=== PATIENT | female | born 1975 | race Caucasian/White ===

== ENCOUNTER 2022-10-24 14:04 | Emergency (ER) | payer BC, SELFPAY ==
--- NOTE | 2022-10-24 14:30 | ED.SKABFB ---
HPI - Skin/Abscess/Foreign Bdy General Chief complaint: Skin/Abscess/Foreign Body Stated complaint: rt breast pain and irritation Time Seen by Provider: 10/24/22 14:31 Source: patient Mode of arrival: ambulatory Limitations: no limitations History of Present Illness HPI narrative: 47-year-old female presents with complaint of pain, swelling, redness to right breast for the past 3 days. Reports she called both her primary care physician and [facility] to be seen in unable to get an appointment for the next several weeks. Patient reports that today the redness to her right breast is improving but continues to have pain and swelling. Reports history of similar symptoms to her left breast several years ago and was told infected milk duct. States at that time she was not . She is currently not . She denies fever, chills, body aches. No nausea vomiting diarrhea. All systems reviewed and negative except as noted above. Related Data Home Medications Medication Instructions Recorded Confirmed amlodipine 10 mg tablet 10 mg PO DAILY 10/24/22 10/24/22 hydrochlorothiazide 25 mg tablet 25 mg PO DAILY 10/24/22 10/24/22 olmesartan 5 mg tablet 5 mg PO DAILY 10/24/22 10/24/22 Allergies Allergy/AdvReac Type Severity Reaction Status Date / Time acetaminophen [From Vicodin] Allergy Unknown Verified 10/24/22 14:34 codeine Allergy Unknown Verified 10/24/22 14:34 diphenhydramine Allergy Unknown Verified 10/24/22 14:34 [From Benadryl] hydrocodone [From Vicodin] Allergy Unknown Verified 10/24/22 14:34 loratadine [From Claritin] Allergy Unknown Verified 10/24/22 14:34 morphine Allergy Unknown Verified 10/24/22 14:34 pseudoephedrine Allergy Unknown Verified 10/24/22 14:34 [From Sudafed] Sulfa (Sulfonamide Allergy Unknown Verified 10/24/22 14:34 Antibiotics) sulfamethoxazole Allergy Unknown Verified 10/24/22 14:34 [From Bactrim] trimethoprim [From Bactrim] Allergy Unknown Verified 10/24/22 14:34 vancomycin Allergy Unknown Verified 10/24/22 14:34 Review of Systems Review of Systems: CONSTITUTIONAL: Denies fever, chills, or sweats. EYES: Denies visual changes, redness, or discharge. ENT: Denies rhinorrhea, congestion, sore throat, or otalgia. CARDIOVASCULAR: Denies chest pain, palpitations, or edema. RESPIRATORY: Denies cough or dyspnea. GASTROINTESTINAL: Denies abdominal pain, nausea, vomiting, or diarrhea. GENITOURINARY: Denies dysuria or hematuria. SKIN: Reports redness, pain and swelling to right breast. MUSCULOSKELETAL: Denies back pain, joint pain, or myalgia. NEUROLOGIC: Denies headache, numbness, or weakness. PSYCHIATRIC: Denies anxiety or depression. All other systems reviewed are negative, except as documented in HPI. PMFSH Comments At time of signature, agree with nursing past medical, surgical, social and family history. There is no relevant family history pertinent to the presenting complaint. Exam Narrative: GENERAL: This is a well-nourished, well-developed patient, in no apparent distress. HEAD: normocephalic, atraumatic. EYES: PERRL. Sclera clear/white. Vision is grossly intact. EARS: External ears normal NOSE: External nose normal NECK: Neck supple, non-tender without lymphadenopathy, masses or thyromegaly. CARDIOVASCULAR: Regular rate and rhythm without murmurs, gallops, or rubs. RESPIRATORY: Clear to auscultation. Breath sounds equal bilaterally. No wheezes, rales, or rhonchi. SKIN: warm, Dry, intact with no suspicious lesions or rash, good texture and turgor. 8cm mass vs induration to medial aspect L breast. no significant erythema or warmth. no nipple involvement or discharge. tender on palpation. NEURO: awake, alert, and oriented to person, place and time. There were no obvious focal neurologic abnormalities. EXTREMITIES: No joint tenderness, effusion, or edema noted. Course Course Level of Care: Express Care Visit Vital Signs Vital si
[2022-10-24 14:37] VITALS: BP 174/99; PULSE 88; RESP 18; TEMP 36.9; O2SAT 100
== END 2022-10-24 14:56 | disposition home or self-care (01) ==
PROVIDERS: Emergency Provider Nurse Practitioner Family; PCP Physician Assistant
DX: N61.0 Mastitis without abscess (principal)
CPT/HCPCS: 99203; G0463

== ENCOUNTER 2023-03-11 15:53 | Emergency (ER) | payer BC, SELFPAY ==
--- NOTE | 2023-03-11 16:02 | ED.FEMALEGU ---
HPI - Female Genitourinary General Chief complaint: Urogenital-Female Stated complaint: uti symptoms Time Seen by Provider: 03/11/23 16:02 Source: patient Mode of arrival: ambulatory Limitations: no limitations History of Present Illness HPI Narrative: Ariela is a 47-year-old female patient presenting to the clinic today with complaints of possible UTI. She reports she has been having burning with urination, frequency, and low urine output times 5 days. She denies any fever but has had some chills. No back pain or abdominal pain. Patient is currently on her menses. Denies using any azo. Related Data Home Medications Medication Instructions Recorded Confirmed amlodipine 10 mg tablet 10 mg PO DAILY 10/24/22 03/11/23 hydrochlorothiazide 25 mg tablet 25 mg PO DAILY 10/24/22 03/11/23 olmesartan 5 mg tablet 5 mg PO DAILY 10/24/22 03/11/23 levonorgestrel 17.5 mcg/24 hrs See Rx Instructions .Route .COMPLEX 03/11/23 03/11/23 (5yrs) 19.5mg intrauterine device (Kyleena) Allergies Allergy/AdvReac Type Severity Reaction Status Date / Time diphenhydramine Allergy Severe Difficulty Verified 03/11/23 16:18 [From Benadryl] Breathing acetaminophen [From Vicodin] AdvReac Mild Hives Verified 03/11/23 16:18 codeine AdvReac Mild Hives Verified 03/11/23 16:18 hydrocodone [From Vicodin] AdvReac Mild Hives Verified 03/11/23 16:18 loratadine [From Claritin] AdvReac Mild Hives Verified 03/11/23 16:18 morphine AdvReac Mild Hives Verified 03/11/23 16:18 pseudoephedrine AdvReac Mild Hives Verified 03/11/23 16:18 [From Sudafed] Sulfa (Sulfonamide AdvReac Mild Hives Verified 03/11/23 16:18 Antibiotics) sulfamethoxazole AdvReac Mild Hives Verified 03/11/23 16:18 [From Bactrim] trimethoprim [From Bactrim] AdvReac Mild Hives Verified 03/11/23 16:18 vancomycin AdvReac Mild Hives Verified 03/11/23 16:18 Review of Systems Review of Systems: Pertinent positives per HPI. Patient denies any fever, chills, rash, headache, visual changes, dizziness, cough, shortness of breath, chest pain, palpitations, nausea, vomiting, diarrhea, constipation, abdominal pain. PMFSH Comments At the time of my signature, I reviewed and agree with the nursing past medical, surgical, social, and family history. There is no relevant family history pertinent to the patient complaint. Exam Narrative: General: Well-developed, obese, in no apparent distress. Head: Normocephalic, atraumatic. Cardio: Regular rate and rhythm, s1 and s2 normal, no murmur appreciated. Resp: Clear to auscultation bilaterally, no rhonchi, rales, wheezing or rubs. Abdomen: Soft, pliable, bowel sounds present in all quadrants, non-tender to palpation, no organomegly, no CVAT tenderness. Course Course Emergency Course: Portions of this record may have been created with voice recognition software. Level of Care: Express Care Visit Vital Signs Vital signs: Vital signs reviewed MDM - Female Genitourinary MDM Narrative Medical decision making narrative: At the time of visit patient is resting comfortably on the exam table. Urinalysis was performed and is positive for leukocytes, blood, protein, ketones, glucose, and bili. Will place patient on Augmentin. Blood sugar was checked in the clinic and was 174. Patient has history of gestational diabetes. Recommend further evaluation by her PCP as soon as possible to rule out diabetic hyperglycemia. Supportive measures were discussed with the patient she voiced understanding discharge instructions agrees to treatment plan. Differential Diagnosis Differential diagnosis: Likely urinary tract infection and cystitis Discharge Plan Discharge Clinical Impression: Urinary tract infection, Acute hyperglycemia Patient Disposition: Home, Self-Care Condition: Stable Instructions: Antibiotic Form, Urinary Tract Infection in Women (ED) Additional Instructions: Urine is positive for leukocytes, nitrates, blood, pro
[2023-03-11 16:08] VITALS: BP 147/91; PULSE 89; RESP 18; TEMP 36.6; O2SAT 100
[2023-03-11 16:25] LABS: Glucose Point of Care 174 mg/dl (65-105)
== END 2023-03-11 16:27 | disposition home or self-care (01) ==
PROVIDERS: Emergency Provider Nurse Practitioner Family
DX: N39.0 Urinary tract infection, site not specified (principal); R73.9 Hyperglycemia, unspecified; B96.20 Unspecified Escherichia coli [E. coli] as the cause of diseases classified elsewhere; I10 Essential (primary) hypertension
CPT/HCPCS: 81003; 82948; 87077; 87086; 87186; 99213; G0463